=== PATIENT | male | born 1960 | race Caucasian/White ===

== ENCOUNTER 2024-05-08 19:22 | Inpatient (IN) | payer OTHER ==
[~2024-05-08] VITALS: Ht 170.2 cm; Wt 76.2 kg
[2024-05-08] MEDS: SODIUM CHLORIDE 0.9% (SEPSIS BOLUS) IV ONE (19:43)
[2024-05-08 19:58] LABS: HEMATOCRIT. 34.5 % (42.0-52.0); HEMOGLOBIN. 11.8 g/dL (14.0-18.0); MEAN CORPUSCULAR HEMOGLOBIN 31.6 pg (28.0-32.0); MEAN CORPUSCULAR HGB CONC 34.4 g/dL (31.0-37.0); MEAN PLATELET VOLUME 7.7 fl (7.4-10.4); PLATELET 117 x1000/uL (130-400); RED BLOOD CELL COUNT 3.75 mill/uL (4.7-6.1); RED CELL DISTRIBUTION WIDTH 12.9 % (11.6-14.6); WHITE BLOOD COUNT 9.5 x1000/uL (4.5-11.0)
[2024-05-08 20:00] LABS: DIFFERENTIAL COMMENT 1
[2024-05-08] MEDS ORDERED: AZITHROMYCIN 500MG/250ML 250 ML IV ONE (20:00)
[2024-05-08] MEDS ORDERED: CEFTRIAXONE 1GM/50ML 50 ML IV ONE (20:00)
[2024-05-08 20:01] LABS: CLARITY URINE CLOUDY (CLEAR); COLOR URINE YELLOW (YELLOW); GLUCOSE URINE 2+ (NEGATIVE); KETONES URINE 3+ (NEGATIVE); LEUKOCYTE ESTERASE URINE 3+ (NEGATIVE); NITRITE URINE POSITIVE (NEGATIVE); OCCULT BLOOD URINE 3+ (NEGATIVE); PH URINE 6.5 (4.5-8.0); PROTEIN URINE 2+ (NEGATIVE); SPECIFIC GRAVITY URINE 1.021 (1.005-1.030)
[2024-05-08 20:03] LABS: CHLORIDE 102 mEq/L (98-107); POTASSIUM 3.6 mEq/L (3.5-5.1); SODIUM 134 mEq/L (136-145)
[2024-05-08 20:04] LABS: CALCIUM 8.7 mg/dL (8.7-10.4); CARBON DIOXIDE 23 mEq/L (21-32)
[2024-05-08 20:09] LABS: CREATININE 1.3 mg/dL (0.6-1.3); GLUCOSE 227 mg/dL (70-105); INR 1.1; PARTIAL THROMBOPLASTIN TIME 30.3 sec (23.4-31.0); PROTHROMBIN TIME 12.4 sec (9.6-11.0); UREA NITROGEN BLOOD 22 mg/dL (9-23)
[2024-05-08 20:10] LABS: TROPONIN I HIGH SENSITIVITY 32 ng/L (3.0-53)
[2024-05-08 20:11] LABS: ALANINE AMINOTRANSFERASE 25 IU/L (10-49); ALBUMIN 3.9 g/dL (3.2-4.8); ASPARTATE AMINOTRANSFERASE 48 IU/L (<34); BILIRUBIN DIRECT 0.3 mg/dL (<=3.0); BILIRUBIN TOTAL 0.9 mg/dL (0.1-1.0); PROTEIN TOTAL 6.5 g/dL (6.0-8.3)
[2024-05-08 20:41] LABS: PLATELET ESTIMATE DECREASED
[2024-05-08 20:43] LABS: BACTERIA URINE 3+; RBC URINE 15-25 /hpf (0-2); SQUAMOUS EPITHELIAL CELL URINE 1+ /lpf (RARE/1+); WBC URINE 25-50 /hpf (0-2)
[2024-05-08] MEDS: CEFTRIAXONE 1GM/50ML 50 ML IV NR (20:50)
[2024-05-08] MEDS: AZITHROMYCIN 500MG/250ML 250 ML IV NR (20:52)
[2024-05-08] MEDS: ACETAMINOPHEN 325MG TABLET PO ONE (20:55)
[2024-05-08] MEDS ORDERED: DOCUSATE SODIUM 100MG CAPSULE PO PRN (23:45)
[2024-05-08] MEDS ORDERED: ONDANSETRON HCL 4MG/2ML INJ IV PRN (23:45)
[2024-05-08] MEDS ORDERED: GUAIFENESIN 200MG/10ML SUGAR FREE UDC PO PRN (23:45)
[2024-05-08] MEDS ORDERED: MAGNESIUM/ALUMINUM HYDROXIDE/SIMETHICONE 30ML UDC PO PRN (23:45)
[2024-05-08] MEDS ORDERED: MELATONIN 3MG TABLET PO PRN (23:45)
[2024-05-08] MEDS ORDERED: HYDRALAZINE 20MG/ML VIAL IV PRN (23:45)
[2024-05-08] MEDS ORDERED: IPRATROPIUM/ALBUTEROL 0.5-3(2.5)MG/3ML NEB HHN PRN ×2 (23:45)
[2024-05-09] MEDS: SODIUM CHLORIDE 0.9% 1,000 ML IV SCH (00:41)
[2024-05-09] MEDS ORDERED: DEXTROSE 50% WATER 50ML SYRINGE IV PRN (01:00)
[2024-05-09 03:35] LABS: CHLORIDE 110 mEq/L (98-107); POTASSIUM 3.3 mEq/L (3.5-5.1); SODIUM 140 mEq/L (136-145)
[2024-05-09 03:36] LABS: CALCIUM 8.5 mg/dL (8.7-10.4); CARBON DIOXIDE 22 mEq/L (21-32)
[2024-05-09 03:41] LABS: CREATININE 0.9 mg/dL (0.6-1.3); GLUCOSE 175 mg/dL (70-105); TRIGLYCERIDE 109 mg/dL (0-150); UREA NITROGEN BLOOD 16 mg/dL (9-23)
[2024-05-09 03:42] LABS: LDL CHOLESTEROL 89 mg/dL (5-100)
[2024-05-09 03:43] LABS: CHOLESTEROL 145 mg/dL (<200); HDL CHOLESTEROL 33 mg/dL (>55)
[2024-05-09 03:44] LABS: PHOSPHORUS 4.1 mg/dL (2.5-4.9)
[2024-05-09 03:45] LABS: T4 FREE 0.97 ng/dL (0.89-1.76); THYROID STIMULATING HORMONE 0.41 uIU/mL (0.55-4.78)
[2024-05-09 04:16] LABS: HEMATOCRIT. 37.4 % (42.0-52.0); MEAN CORPUSCULAR HEMOGLOBIN 31.9 pg (28.0-32.0); MEAN CORPUSCULAR HGB CONC 34.8 g/dL (31.0-37.0); MEAN CORPUSCULAR VOLUME 91.6 fL (80.0-94.0); MEAN PLATELET VOLUME 7.7 fl (7.4-10.4); PLATELET 125 x1000/uL (130-400); RED BLOOD CELL COUNT 4.09 mill/uL (4.7-6.1); RED CELL DISTRIBUTION WIDTH 12.8 % (11.6-14.6); WHITE BLOOD COUNT 9.7 x1000/uL (4.5-11.0)
[2024-05-09 04:19] LABS: DIFFERENTIAL COMMENT 1
[2024-05-09 08:18] LABS: NUCLEATED RED BLOOD CELLS 1 /100 WBC; PLATELET ESTIMATE SLIGHTLY DECREASED
[2024-05-09] MEDS: INSULIN LISPRO 100 UNITS/ML SUBCUT SCH (09:33)
[2024-05-09] MEDS: BLOOD SUGAR DIAGNOSTIC STRIP TEST SCH (09:33)
[2024-05-09] MEDS: PANTOPRAZOLE 40MG DR TABLET PO SCH (10:06)
[2024-05-09] MEDS: ENOXAPARIN 40MG/0.4ML SYR SUBCUT SCH (10:06)
[2024-05-09] MEDS: CEFTRIAXONE 1GM/50ML 50ML IV SCH (18:00)
[2024-05-09] MEDS ORDERED: CEFTRIAXONE 1,000 MG in DEXT 5% WATER 100 ML IV SCH ×2 (18:00→21:00)
[2024-05-09 20:00] VITALS: BP 121/71; PULSE 99; RESP 18; TEMP 36.44736; TEMP 36.4736; O2SAT 96
[2024-05-10] VITALS: BP 121/67; PULSE 95; RESP 20; TEMP 36.28068; O2SAT 98
[2024-05-10 04:00] VITALS: BP 119/71; PULSE 84; RESP 18; TEMP 36.9474; O2SAT 99
[2024-05-10 08:00] VITALS: BP 110/61; PULSE 84; RESP 16; TEMP 36.72516; O2SAT 98
[2024-05-10] MEDS: TAMSULOSIN HCL 0.4MG SR CAPSULE PO SCH (09:28)
[2024-05-10 11:35] LABS: CHLORIDE 113 mEq/L (98-107); POTASSIUM 3.6 mEq/L (3.5-5.1); SODIUM 143 mEq/L (136-145)
[2024-05-10 11:36] LABS: CALCIUM 8.4 mg/dL (8.7-10.4); CARBON DIOXIDE 21 mEq/L (21-32)
[2024-05-10 11:41] LABS: CREATININE 0.9 mg/dL (0.6-1.3); GLUCOSE 197 mg/dL (70-105); UREA NITROGEN BLOOD 13 mg/dL (9-23)
[2024-05-10 12:00] VITALS: BP 123/76; PULSE 99; RESP 18; TEMP 36.55848; O2SAT 98
[2024-05-10 12:04] LABS: HEMATOCRIT 37.6 % (42.0-52.0); HEMOGLOBIN 12.7 g/dL (14.0-18.0); MEAN CORPUSCULAR HEMOGLOBIN 31.1 pg (28.0-32.0); MEAN CORPUSCULAR HGB CONC 33.7 g/dL (31.0-37.0); MEAN CORPUSCULAR VOLUME 92.3 fL (80.0-94.0); PLATELET 142 x1000/uL (130-400); RED BLOOD CELL COUNT 4.07 mill/uL (4.7-6.1); RED CELL DISTRIBUTION WIDTH 13.2 % (11.6-14.6); WHITE BLOOD COUNT 8.1 x1000/uL (4.5-11.0)
[2024-05-10] MEDS ORDERED: FINA5TAB11 MT (12:36)
[2024-05-10] MEDS ORDERED: ACET-2708 MT (12:36)
[2024-05-10] MEDS ORDERED: TAMS-11 PO (12:36)
[2024-05-10] MEDS ORDERED: NITR-87 MT (12:36)
[2024-05-10] MEDS: FINASTERIDE 5MG TABLET PO SCH (13:36)
[2024-05-10] MEDS: POTASSIUM CHLORIDE 20MEQ TABLET SR PO NR (13:36)
[2024-05-10 16:00] VITALS: BP 118/70; PULSE 91; RESP 18; TEMP 36.44736; O2SAT 98
[2024-05-10] MEDS: CEFTRIAXONE 2GM/50ML 50 ML IV SCH (16:17)
[2024-05-10 20:00] VITALS: BP 137/72; PULSE 105; RESP 17; TEMP 38.94756; O2SAT 99
[2024-05-10] MEDS: ACETAMINOPHEN 325MG TABLET PO PRN (22:41)
[2024-05-11] VITALS (7 sets, daily range): BP systolic 99–122; BP diastolic 58–78; PULSE 51–91; RESP 16–20; TEMP 36.00288–37.2252; O2SAT 97–100
[2024-05-11] MEDS: DILTIAZEM HCL 5MG/ML 5ML VIAL IV NR (00:47)
[2024-05-11] MEDS: DILTIAZEM HCL 30MG TABLET PO SCH (02:30)
[2024-05-11 07:25] LABS: CARBON DIOXIDE 23 mEq/L (21-32); CHLORIDE 113 mEq/L (98-107); POTASSIUM 3.7 mEq/L (3.5-5.1); SODIUM 144 mEq/L (136-145)
[2024-05-11 07:26] LABS: CALCIUM 8.5 mg/dL (8.7-10.4)
[2024-05-11 07:31] LABS: GLUCOSE 197 mg/dL (70-105); UREA NITROGEN BLOOD 14 mg/dL (9-23)
[2024-05-11 08:23] LABS: HEMATOCRIT 38.2 % (42.0-52.0); HEMOGLOBIN 12.4 g/dL (14.0-18.0); MEAN CORPUSCULAR HEMOGLOBIN 30.6 pg (28.0-32.0); MEAN CORPUSCULAR HGB CONC 32.6 g/dL (31.0-37.0); MEAN CORPUSCULAR VOLUME 93.9 fL (80.0-94.0); PLATELET 133 x1000/uL (130-400); RED BLOOD CELL COUNT 4.07 mill/uL (4.7-6.1); RED CELL DISTRIBUTION WIDTH 13.5 % (11.6-14.6); WHITE BLOOD COUNT 6.8 x1000/uL (4.5-11.0)
[2024-05-11 13:19] LABS: TROPONIN I HIGH SENSITIVITY 9 ng/L (3.0-53)
[2024-05-11 13:20] LABS: CREATINE KINASE MB FRACTION 2.1 ng/mL (0.5-3.6); PHOSPHORUS 2.3 mg/dL (2.5-4.9)
[2024-05-11 22:16] LABS: TROPONIN I HIGH SENSITIVITY 8 ng/L (3.0-53)
[2024-05-12] VITALS: BP 119/72; PULSE 81; RESP 18; TEMP 36.44736; O2SAT 98
[2024-05-12 02:32] LABS: TROPONIN I HIGH SENSITIVITY 8 ng/L (3.0-53)
[2024-05-12 04:00] VITALS: BP 136/84; PULSE 78; RESP 17; TEMP 36.55848; O2SAT 97
[2024-05-12 07:44] LABS: CHLORIDE 111 mEq/L (98-107); POTASSIUM 3.5 mEq/L (3.5-5.1); SODIUM 143 mEq/L (136-145)
[2024-05-12 07:45] LABS: CARBON DIOXIDE 23 mEq/L (21-32)
[2024-05-12 07:46] LABS: CALCIUM 8.5 mg/dL (8.7-10.4)
[2024-05-12 07:50] LABS: CREATININE 0.8 mg/dL (0.6-1.3)
[2024-05-12 07:51] LABS: GLUCOSE 166 mg/dL (70-105); UREA NITROGEN BLOOD 14 mg/dL (9-23)
[2024-05-12 08:30] VITALS: BP 124/78; PULSE 86; RESP 18; TEMP 36.61404; O2SAT 97
[2024-05-12 08:42] LABS: MEAN CORPUSCULAR HEMOGLOBIN 31.1 pg (28.0-32.0); MEAN CORPUSCULAR HGB CONC 33.4 g/dL (31.0-37.0); MEAN CORPUSCULAR VOLUME 93.2 fL (80.0-94.0); PLATELET 175 x1000/uL (130-400); RED BLOOD CELL COUNT 3.86 mill/uL (4.7-6.1); RED CELL DISTRIBUTION WIDTH 13.5 % (11.6-14.6); WHITE BLOOD COUNT 6.8 x1000/uL (4.5-11.0)
[2024-05-12] MEDS: FAMOTIDINE 20MG TABLET PO SCH (08:59)
[2024-05-12] MEDS ORDERED: LEVO750T68 MT (09:36)
[2024-05-12 09:59] VITALS: BP 115/72; PULSE 93; TEMP 98.2; O2SAT 95
[2024-05-12 11:14] VITALS: BP 115/72; PULSE 93; RESP 18; TEMP 36.78072; O2SAT 95
[2024-05-12] MEDS ORDERED: DILT120C11 MT (15:32)
== END 2024-05-12 11:20 | disposition home or self-care (01) | DRG 872 ==
LOC: ER 19:22 → MICUSO 21:28 → 5WST 05-09 11:46
PROVIDERS: ADMIT Hospitalist; ATTEND Hospitalist
DX: A41.51 Sepsis due to Escherichia coli [E. coli] (principal); N39.0 Urinary tract infection, site not specified; I47.10 Supraventricular tachycardia, unspecified; N17.9 Acute kidney failure, unspecified; N13.8 Other obstructive and reflux uropathy; Z20.822 Contact with and (suspected) exposure to COVID-19; N18.9 Chronic kidney disease, unspecified; E78.5 Hyperlipidemia, unspecified; D64.9 Anemia, unspecified; D69.6 Thrombocytopenia, unspecified; E11.22 Type 2 diabetes mellitus with diabetic chronic kidney disease; E11.65 Type 2 diabetes mellitus with hyperglycemia; G89.29 Other chronic pain; I48.91 Unspecified atrial fibrillation; N28.1 Cyst of kidney, acquired; N40.1 Benign prostatic hyperplasia with lower urinary tract symptoms
CPT/HCPCS: 36415; 71045; 74176; 76770; 80048; 80061; 80076; 80320; 81003; 82550; 82553; 82962; 83036; 83605; 83735; 83880; 84100; 84145; 84153; 84439; 84443; 84481; 84484; 85025; 85027; 85651; 87077; 87186; 87426; 87804; 93005; 93306; 99285; J0456; J0696; J1650; J1815; J3490; J7030; J7060; G0480

== ENCOUNTER 2024-08-20 21:11 | Emergency (ER) | payer OTHER ==
[~2024-08-20] VITALS: Ht 172.7 cm; Wt 74.0 kg
[~2024-08-20 21:11] MED LIST: ACET-2708 MT; DILT120C11 MT; FINA5TAB11 MT; LEVO750T68 MT; TAMS-11 PO
[2024-08-20 21:32] VITALS: O2SAT 99
[2024-08-20 21:49] VITALS: BP 147/79; PULSE 80; RESP 18; TEMP 36.9; O2SAT 99
[2024-08-21] VITALS: TEMP 98.4
[2024-08-21] MEDS: ACETAMINOPHEN 325MG TABLET PO ONE
[2024-08-21] MEDS ORDERED: TAMS-11 MT (02:01)
== END 2024-08-21 02:00 | disposition home or self-care (01) ==
LOC: ER 21:11
DX: R33.8 Other retention of urine (principal); Z79.899 Other long term (current) drug therapy
CPT/HCPCS: 51702; 99284